=== PATIENT | female | born 1945 | race Caucasian/White ===

== ENCOUNTER → 2017-02-18 | Outpatient (CLI) | payer MEDICARE ==
[~2017-02-18] MED LIST: DIAZEPAM PO; KEFLEX500 M1 PO; LASIX PO; PERCOCET 10/31 UDTA1 PO; POTASSIUM CHLO20 ME1 PO; SINGULAIR PO; SYMBICORT INH
--- NOTE | ~2017-02-18 | CT114 ---
[facility] A Service of [facility] RADIOLOGY TEXT RESULTS PATIENT: JOSR GREEN [facility] [birth year] UN[facility] #: [id number] AGE: [address]: Redd Mueller MD SEX: F ORDER DR: [id number] [facility] [address] [place], [place] [address] [id number] O MR#: [id number] Acc #: [id number] NAME: JOSR GREEN : 1945 SEX: F STUDY DATE/TIME: 02/18/2017 15:52 UNIT: [facility] ROOM: STUDY DESCRIPTION: CT Soft Tissue Neck W Cont Attending Physician: Redd Mueller M.D. Referring Physician: Redd Mueller M.D. Ordering Physician: Redd Mueller M.D. Primary Care Physician: Redd Mueller M.D. MEDICAL IMAGING REPORT This report is preliminary unless electronic signature is present EXAM Soft tissue neck CT with contrast 02/18/2017 PROCEDURE Axial contrast-enhanced soft tissue neck CT with multiplanar reformats. This CT examination was performed with one or more of the following radiation dose reduction techniques: automatic exposure control, adjustment of mA and/or kV according to patient size, and iterative reconstruction. COMPARISON None. HISTORY Left side neck pain and swelling for 2 months. FINDINGS A cutaneous marker is placed directly over the left submandibular salivary gland. Both salivary glands, as well as both parotid glands, are normal. There is no evidence of sialadenitis, sialolithiasis, sialodocholithiasis, or sialodochoectasia. There is no suspicious cervical adenopathy on either side. There are small low-density lesions in the right lobe of the thyroid gland but only about 7 mm in maximal dimension, not requiring imaging followup unless there is a personal or family history suggesting the increased risk of thyroid malignancy. There is plaque at the cervical carotid bifurcations but 0% stenosis in both internal carotids by NASCET criteria. Non-detailed images of the larynx are normal. The visualized lung apices show no acute abnormality. The bony structures are unremarkable except for mild spinal degenerative change. [facility] A Service of [facility] RADIOLOGY TEXT RESULTS PATIENT: JOSR GREEN [facility] [birth year] UNIT #: [id number] AGE: [address]: Redd Mueller MD SEX: F ORDER DR: IMPRESSION 1. Essentially normal negative unremarkable soft tissue neck CT with contrast. The cutaneous marker indicating the site of abnormality is directly over the left submandibular salivary gland but the gland appears normal and there is no evidence of any convincing abnormality in either submandibular or parotid gland. 2. No suspicious mass or adenopathy. 3. Plaque at the carotid bifurcations with 0% stenosis bilaterally by NASCET criteria. 4. Small subcentimeter thyroid lesions. Given patient age, at this size no imaging followup is required unless personal or family history suggests an increased risk of malignancy. 5. There is a small air-filled cystic lesion at the thoracic inlet to the right of midline probably a Zenker's diverticulum or possibly a small tracheal diverticulum but in any event of doubtful acute clinical significance. Dictated by... Amando López M.D. THIS IS AN ELECTRONICALLY VERIFIED REPORT Amando López M.D. at 02/19/2017 5:04 PM LEO/mandy TD: 02/19/2017 12:00 JOB #: [id number] MEDICAL IMAGING REPORT Page 1 of 1 COPY
--- NOTE | ~2017-02-18 | BD1 ---
[facility] A Service of [facility] RADIOLOGY TEXT RESULTS PATIENT: JOSR GREEN LOCATION: [facility] : [birth year] UNIT #: [id number] AGE: [address]: Redd Mueller MD SEX: F ORDER DR: [id number] [facility] [address] [place], [place] [address] [id number] O MR#: [id number] Acc #: [id number] NAME: JOSR GREEN. : 1945 SEX: F STUDY DATE/TIME: 02/18/2017 14:58 UNIT: [facility] ROOM: STUDY DESCRIPTION: BD Dexa Bone Dens 1+ Site Attending Physician: Redd Mueller M.D. Referring Physician: Redd Mueller M.D. Ordering Physician: Redd Mueller M.D. Primary Care Physician: Redd Mueller M.D. MEDICAL IMAGING REPORT This report is preliminary unless electronic signature is present EXAM DXA scan, 02/18/2017. HISTORY Status post menopause with no hormone replacement therapy. Osteopenia. Hysterectomy at age 24 with removal of both ovaries. Arthritis. Back surgery. Smoking history for 52 years. FINDINGS Bone mineral density in the left femoral neck was 0.425 g/cm2 which is 3.8 standard deviations below the mean when compared to the young adult reference population which is characteristic of osteoporosis. This is 2.1 standard deviations below the mean when compared to the age-matched population. Bone mineral density in the left forearm was 0.521 g/cm2 which is 2.9 standard deviations below the mean when compared to the young adult reference population which is characteristic of osteoporosis. This is 0.9 standard deviations below the mean when compared to the age-matched population. Compared with 01/26/2008, there has been a decrease in bone mineral density in the left forearm of 12.4%. IMPRESSION Bone mineral density in the left hip and left forearm characteristic of osteoporosis. Dictated by... Anthony Goel M.D. THIS IS AN ELECTRONICALLY VERIFIED REPORT Anthony Goel M.D. at 02/19/2017 2:25 PM GEORGETTE/babita TD: 02/18/2017 19:16 [facility] A Service of [facility] RADIOLOGY TEXT RESULTS PATIENT: JOSR GREEN LOCATION: [facility] : [birth year] UNIT #: [id number] AGE: [address]: Redd Mueller MD SEX: F ORDER DR: NEHEMIAS #: [id number] MEDICAL IMAGING REPORT Page 1 of 1 COPY
--- NOTE | ~2017-02-18 | MY29 ---
[facility] A Service of [facility] RADIOLOGY TEXT RESULTS PATIENT: JOSR GREEN LOCATION: [facility] : 49 UNIT #: [id number] AGE: [address]: Redd Mueller MD SEX: F ORDER DR: [id number] [facility] [address] [place], [place] [address] [id number] O MR#: [id number] Acc #: [id number] NAME: JOSR GREEN. : 1945 SEX: F STUDY DATE/TIME: 02/18/2017 14:43 UNIT: [facility] ROOM: STUDY DESCRIPTION: MY TYLER SCREENING W/ CAD BILAT Attending Physician: Redd Mueller M.D. Referring Physician: Redd Mueller M.D. Ordering Physician: Redd Mueller M.D. Primary Care Physician: Redd Mueller M.D. MEDICAL IMAGING REPORT This report is preliminary unless electronic signature is present EXAM Bilateral digital screening mammogram with CAD 02/18/2017 INDICATIONS 71-year-old female for routine screening. No reported problems and no personal or family history of breast cancer. No surgeries. TECHNIQUE CC and MLO views of the breasts were obtained and reviewed with a FDA-approved CAD device. COMPARISON STUDIES 06/14/2009 and 06/12/2008. FINDINGS Breast parenchyma is composed of scattered fibroglandular densities. The pattern is unchanged. There is no new dominant nodule, mass or suspicious clustered microcalcifications. IMPRESSION 1. Negative screening mammogram, 1 year followup recommended. BIRADS: 1 Negative. Patients over the age of 40 are entered into a reminder system with target due date for the next mammogram. A result letter will also be sent to the patient. Dictated by... Moise Heath M.D. [facility] A Service of [facility] RADIOLOGY TEXT RESULTS PATIENT: JOSR GREEN LOCATION: [facility] : [birth year] UNIT #: [id number] AGE: [address]: Redd Mueller MD SEX: F ORDER DR: THIS IS AN ELECTRONICALLY VERIFIED REPORT Moise Heath M.D. at 02/19/2017 7:29 AM TAWANDA/barb TD: 02/18/2017 19:33 JOB #: [id number] MEDICAL IMAGING REPORT Page 1 of 1 COPY
[2017-02-18 15:36] LABS: POC - CREATININE 0.73 mg/dL (0.44-1.03); POC - GFR >60.0 mL/min (>60)
== END | disposition home or self-care (01) ==
LOC: CCAT 13:48
PROVIDERS: Family Medicine
DX: Z12.31 Encounter for screening mammogram for malignant neoplasm of breast (principal); K11.20 Sialoadenitis, unspecified; Z78.0 Asymptomatic menopausal state; I65.23 Occlusion and stenosis of bilateral carotid arteries; E07.89 Other specified disorders of thyroid
CPT/HCPCS: 70491; 77080; 82565; G0202; Q9967